=== PATIENT | male | born 1995 ===

== ENCOUNTER 2018-02-21 13:26 | Emergency (ER) | payer MEDICAID, OTHER ==
[2018-02-21 13:26] VITALS: BMI 17.7
[2018-02-21 13:43] VITALS: TEMP 97.6
[2018-02-21 14:37] VITALS: BP 104/58; PULSE 82; RESP 16
[2018-02-21 14:38] VITALS: O2SAT 99
--- NOTE | 2018-02-21 14:38 | C.PDOC ---
History Of Present Illness 22 year old male presents to ED complaining of left sided chest pain for the past 3 days. Patient reports pain is digitally reproducible with left arm movement. Denies fall, fever, chills, cough, shortness of breath, weakness, numbness. Time Seen by Provider: 02/21/18 14:15 Chief Complaint (Nursing): Chest Pain History Per: Patient History/Exam Limitations: no limitations Onset/Duration Of Symptoms: Days Current Symptoms Are (Timing): Still Present Past Medical History Reviewed: Historical Data, Nursing Documentation, Vital Signs Vital Signs: Last Vital Signs Temp 97.6 F 02/21/18 13:40 Pulse 66 02/21/18 13:40 Resp 18 02/21/18 13:40 BP 118/74 02/21/18 13:40 Pulse Ox 99 02/21/18 13:40 - Medical History PMH: Anxiety, Pneumothorax (at ) Surgical History: No Surg Hx - [facility] APPLICATION OF SPLINT (10/20/14) Family History: States: No Known Family Hx - Social History Hx Tobacco Use: No Hx Alcohol Use: No (marijuana) Hx Substance Use: No - Immunization History Hx Tetanus Toxoid Vaccination: No Hx Influenza Vaccination: No Hx Pneumococcal Vaccination: No Review Of Systems Except As Marked, All Systems Reviewed And Found Negative. Constitutional: Negative for: Fever, Chills Cardiovascular: Positive for: Chest Pain (Left sided.) Respiratory: Negative for: Cough, Shortness of Breath Gastrointestinal: Negative for: Nausea, Vomiting Neurological: Positive for: Other ((-) fall). Negative for: Weakness, Numbness Physical Exam - Physical Exam Appears: Non-toxic, No Acute Distress Skin: Warm, Dry, No Rash, Other (No mass, no hematoma.) Head: Atraumatic, Normacephalic Eye(s): bilateral: PERRL, EOMI Oral Mucosa: Moist Neck: Supple Chest: Symmetrical, No Deformity, Tenderness (Left lateral pectoralis area.) Cardiovascular: Rhythm Regular, No Murmur Respiratory: Normal Breath Sounds, No Rales, No Rhonchi, No Wheezing Gastrointestinal/Abdominal: Soft, No Tenderness Neurological/Psych: Oriented x3 ED Course And Treatment ECG: Interpreted By Me ECG Rhythm: Sinus Rhythm ECG Interpretation: Normal Rate From EC O2 Sat by Pulse Oximetry: 99 (RA) Pulse Ox Interpretation: Normal Reevaluation Time: 14:35 Medical Decision Making Medical Decision Making: positionally and digitally reproducible anterior chest wall discomfort, no ca rdiac s/s normal ekg Plan: * EKG * Ibuprofen Disposition Doctor Will See Patient In The: Office Counseled Patient/Family Regarding: Studies Performed, Diagnosis - Disposition Referrals: [facility] [Outside] [facility] [Outside] [facility] [Outside] [facility] [Outside] Disposition: HOME/ ROUTINE Disposition Time: 14:38 Condition: GOOD Additional Instructions: continue ice packs 1/2 hour per hour, nothing hot. motrin/advil 400-600 mg every 6 hours as needed no heavy lifting for 1 week follow-up in the outpatient Clinic as needed. Instructions: Costochondritis Forms: [facility] (Vincentian) - Clinical Impression Clinical Impression: Chest wall discomfort - Scribe Statement The provider has reviewed the documentation as recorded by the Katibinderjit Bostoned Provider Attestation: All medical record entries made by the Katibinderjit were at my direction and personally dictated by me. I have reviewed the chart and agree that the record accurately reflects my personal performance of the history, physical exam, medical decision making, and the department course for this patient. I have also personally directed, reviewed, and agree with the discharge instructions and disposition.
--- NOTE | 2018-02-24 19:30 | CARD ---
APPROVED REPORT Date of service: 02/21/2018 EKG Measurement Heart [id number] CT 128P14 [id number] <Conclusion> Normal sinus rhythm Early repolarization Normal ECG
== END 2018-02-21 15:06 | disposition home or self-care (01) ==
LOC: C.ER 13:26
DX: R07.89 Other chest pain (principal)

== ENCOUNTER 2018-08-16 15:45 | Observation (INO) | payer MEDICAID, OTHER ==
[2018-08-16 16:42] LABS: BASO # 0.1 K/uL (0.0-0.2); BASO % 1.3 % (0.0-2.0); EOS # 0.1 K/uL (0.0-0.7); EOS % 1.5 % (0.0-4.0); HEMOGLOBIN 15.7 g/dL (12.0-18.0); LYMPH # 1.2 K/uL (1.0-4.3); LYMPH % 28.1 % (20.0-40.0); MEAN CELL VOLUME 90.2 fL (80.0-94.0); MEAN CORPUSCULAR HEMOGLOBIN 31.3 pg (27.0-31.0); MEAN CORPUSCULAR HGB CONC 34.7 g/dL (33.0-37.0); MEAN PLATELET VOLUME 7.8 fL (7.2-11.7); MONO # 0.4 K/uL (0.0-0.8); MONO % 8.3 % (0.0-10.0); NEUT # 2.6 K/uL (1.8-7.0); NEUT % 60.8 % (50.0-75.0); RBC 5.02 Mil/uL (4.40-5.90); RED CELL DISTRIBUTION WIDTH 12.4 % (11.5-14.5); WHITE BLOOD COUNT 4.3 K/uL (4.8-10.8)
[2018-08-16 16:50] LABS: INR 1.1; PROTHROMBIN TIME 11.5 SECONDS (9.7-12.2)
[2018-08-16 16:53] LABS: ALB/GLOB RATIO 1.9 (1.0-2.1); ALBUMIN 4.7 g/dL (3.5-5.0); ALT/SGPT 13 U/L (21-72); AST/SGOT 33 U/L (17-59); BLOOD UREA NITROGEN 15 mg/dL (9-20); CALCIUM 10.1 mg/dl (8.6-10.4); GFR NON-AFRICAN AMERICAN > 60
--- NOTE | 2018-08-16 17:16 | RAD ---
Date of service: 08/16/2018 HISTORY: pleuritic chest pain COMPARISON: No prior. TECHNIQUE: Chest PA and lateral views FINDINGS: LUNGS: Increased lung Lolis vascular markings bilaterally. No focal consolidation. PLEURA: No significant pleural effusion identified. No pneumothorax apparent. CARDIOVASCULAR: No aortic atherosclerotic calcification present. Normal cardiac size. No pulmonary vascular congestion. OSSEOUS STRUCTURES: No significant abnormalities. VISUALIZED UPPER ABDOMEN: Normal. OTHER FINDINGS: None. IMPRESSION: Increased bronchovascular markings bilaterally may be seen with reactive airway disease and/or acute viral syndrome.
[2018-08-16 17:23] LABS: CK-MB 0.55 ng/mL (0.0-3.38)
[2018-08-16] MEDS ORDERED: Aspirin 325 mg EC Tablets PO STA (17:39)
[2018-08-16 18:12] LABS: BARBITURATES, UR NEGATIVE (NEGATIVE); BENZODIAZEPINES, UR NEGATIVE (NEGATIVE); OPIATES, UR NEGATIVE (NEGATIVE); PHENCYCLIDINE, UR NEGATIVE (NEGATIVE)
--- NOTE | 2018-08-16 18:58 | C.PDOC ---
History Of Present Illness 23 year old male presents to the ED complaining of pleuritic chest pain for 3 days. Reports it feels like his rib cage hurts. States he noticed blood streaks in his nose when he was showering this morning. Denies any SOB, nausea, vom iting, abdominal pain, dizziness, lightheadedness, fever, chills, cough or any other associated symptoms. Time Seen by Provider: 08/16/18 15:55 Chief Complaint (Nursing): Cough, Cold, Congestion History Per: Patient History/Exam Limitations: no limitations Onset/Duration Of Symptoms: Days (3) Current Symptoms Are (Timing): Still Present Past Medical History Reviewed: Historical Data, Nursing Documentation, Vital Signs Vital Signs: Last Vital Signs Temp 97.5 F L 08/16/18 15:48 Pulse 70 08/16/18 15:48 Resp 20 08/16/18 15:48 BP 117/79 08/16/18 15:48 Pulse Ox 100 08/16/18 15:48 - Medical History PMH: Anxiety Surgical History: No Surg Hx Family History: States: No Known Family Hx - Social History Hx Alcohol Use: Yes Hx Substance Use: No - Immunization History Hx Tetanus Toxoid Vaccination: No Hx Influenza Vaccination: No Hx Pneumococcal Vaccination: No Review Of Systems Except As Marked, All Systems Reviewed And Found Negative. Constitutional: Negative for: Fever, Chills ENT: Positive for: Other (blood streaks in nose ) Cardiovascular: Positive for: Chest Pain. Negative for: Light Headedness Respiratory: Negative for: Cough, Shortness of Breath Gastrointestinal: Negative for: Nausea, Vomiting, Abdominal Pain Neurological: Negative for: Dizziness Physical Exam - Physical Exam Appears: Non-toxic, No Acute Distress Skin: Warm, Dry, No Rash Head: Normacephalic Eye(s): bilateral: Normal Inspection Nose: Normal, No Epistaxis, No Other (signs of infection ) Oral Mucosa: Moist Tongue: Normal Appearing Lips: Normal Appearing Teeth: Normal Dentition Gingiva: Normal Appearing Throat: Normal, No Erythema, No Exudate Neck: Supple Chest: Symmetrical Cardiovascular: Rhythm Regular Respiratory: Normal Breath Sounds, No Rales, No Rhonchi, No Wheezing Extremity: Bilateral: Atraumatic, Normal Color And Temperature, Normal ROM Neurological/Psych: Oriented x3, Normal Speech Gait: Steady ED Course And Treatment - Laboratory Results Result Diagrams: 08/16/18 16:38 08/16/18 16:38 Lab Results: PT 11.5 SECONDS (9.7-12.2) 08/16/18 16:38 INR 1.1 08/16/18 16:38 APTT 33 SECONDS (21-34) 08/16/18 16:38 D-Dimer, Quantitative 206 ng/mlDDU (0-243) 08/16/18 16:38 Troponin I < 0.0120 ng/mL (0.00-0.120) 08/16/18 16:38 Total Bilirubin 0.8 mg/dL (0.2-1.3) 08/16/18 16:38 AST 33 U/L (17-59) 08/16/18 16:38 ALT 13 U/L (21-72) L 08/16/18 16:38 Alkaline Phosphatase 87 U/L (38-126) 08/16/18 16:38 Total Protein 7.3 g/dL (6.3-8.3) 08/16/18 16:38 Albumin 4.7 g/dL (3.5-5.0) 08/16/18 16:38 Globulin 2.5 gm/dL (2.2-3.9) 08/16/18 16:38 Albumin/Globulin Ratio 1.9 (1.0-2.1) 08/16/18 16:38 ECG: Interpreted By Me, Viewed By Me ECG Rhythm: Sinus Rhythm Interpretation Of ECG: Diffused ST elevations consistent with acute pericarditis. Rate From EC O2 Sat by Pulse Oximetry: 100 (RA) Pulse Ox Interpretation: Normal Progress Note: CXR ordered. No acute disease. Patient treated with Aspirin. Patient seen by attending Dr. Aldridge. Case was d/w Mail Deliverer who recommended observe patient in tele, ESR, Cardiac ECHO in the morning. Disposition - Disposition Disposition: HOSPITALIZED Disposition Time: 19:07 Condition: FAIR Forms: [facility] (Belarusian) - Clinical Impression Clinical Impression: Pericarditis - PA / SOFTWARE LICENSING ANALYST / Resident Statement MD/DO has reviewed & agrees with the documentation as recorded. - Scribe Statement The provider has reviewed the documentation as recorded by the Scribe Inga Matos All medical record entries made by the Scribe were at my direction and personally dictated by me. I have reviewed the chart and agree that the record accurately reflects my personal performance of the history, physical exam, medical decision making, and the department course for this patient. I have also personally directed, reviewed, and agree with the discharge instructions and disposition. Decision To Admit - Pt Status Changed To: Hospital Disposition Of: Observation - . Bed Request Type: Telemetry Admitting Physician: aZc Galindo Patient Diagnosis: Pericarditis
--- NOTE | 2018-08-16 20:30 | CP.PCM.HP ---
<Lawanda Porter - Last Filed: 08/17/18 00:11> History of Present Illness - History of Present Illness History of Present Illness: cc: "worsening rib pain" Mr. Leach is a 23 year old male with a PMH of anxiety presents to the ED with 3 days of pain in his ribs R>L during coughing and laughing. At worst, the pain is a 7/10 on his lateral rib cage, radiating slightly to the back, no quite re aching the flank. There is no soreness on his anterior side. It extends from below his armpit to the top of his hips, worsened with palpation, coughing, laughing, or holding his breath. The pain is not there in the morning when he first wakes. He additionally complains of nose bleeds for the last two days that first started in the shower. He's had two episodes today that took increasingly longer to stop. The latest took about 20 minutes before it stopped fully. Denies trauma, chest pain, shortness of breath, positional changes, ROM difficulties, bruising, nausea, vomiting, diarrhea. PMH: anxiety, congenital collapsed lung Med: denies All: NKDA PSxHx: denies FamHx: father - tuberculosis (treated), mother - leukemia, paternal uncle - prostate CA SocHx: smokes socially bumming cigarettes off friends at parties for the last year since quitting smoking marijuana after a "bad trip". Smoked marijuana for 3 years weekly, quitting in 2017. Binge drinks 10-15 (mix of shots and beer) 2x/month. Lives with family and is a freshman in college. Present on Admission - Present on Admission Any Indicators Present on Admission: No Review of Systems - Constitutional Constitutional: Increased Appetite, Weight Loss. absent: Anorexia, Chills, Fever, Headache - EENT Eyes: absent: Blind Spots, Blurred Vision, Change in Vision, Diplopia Ears: absent: Decreased Hearing, Tinnitus Nose/Mouth/Throat: Epistaxis. absent: Nasal Congestion, Nasal Discharge, Post Nasal Drip, Dysphagia, Odynophagia - Cardiovascular Cardiovascular: absent: Chest Pain, Diaphoresis, Dyspnea, Edema, Leg Edema, Palpitations, Rapid Heart Rate - Respiratory Respiratory: Pain with Coughing. absent: Cough, Dyspnea, Hemoptysis - Gastrointestinal Gastrointestinal: absent: Belching, Constipation, Diarrhea, Dysphagia, Excessive Flatus, Nausea, Odynophagia, Vomiting - Genitourinary Genitourinary: absent: Difficulty Urinating, Dysuria, Hematuria - Musculoskeletal Musculoskeletal: absent: Arthralgias, Back Pain, Limited Range of Motion, Numbness, Tingling - Integumentary Integumentary: absent: Acne, Bleeding Lesions, Rash, Sores, Wounds - Neurological Neurological: absent: Numbness, Headaches, Syncope, Tingling - Psychiatric Psychiatric: Anxiety - Hematologic/Lymphatic Hematologic: absent: Easy Bleeding, Easy Bruising Past Patient History - Past Social History Smoking Status: Current Some Days Smoker Alcohol: Social Drugs: Denies, Cannabis Home Situation {Lives}: With Family - PSYCHIATRIC Hx Anxiety: Yes Hx Substance Use: No - SURGICAL HISTORY Hx Surgeries: No Meds Allergies/Adverse Reactions: Allergies Allergy/AdvReac Type Severity Reaction Status Date / Time No Known Allergies Allergy Unverified 08/16/18 15:50 Physical Exam - Constitutional Appears: Well, Non-toxic, No Acute Distress - Head Exam Head Exam: ATRAUMATIC, NORMOCEPHALIC - Eye Exam Eye Exam: EOMI, Normal appearance, PERRL Pupil Exam: NORMAL ACCOMODATION - ENT Exam ENT Exam: Mucous Membranes Moist Additional comments: nose ring L - Neck Exam Neck exam: Positive for: Normal Inspection. Negative for: Lymphadenopathy, Tenderness, Thyromegaly - Respiratory Exam Respiratory Exam: Chest Wall Tenderness, Clear to Auscultation Bilateral, NORMAL BREATHING PATTERN. absent: Decreased Breath Sounds, Rales, Rhonchi, Wheezes Additional comments: splinting on deep inspiration - Cardiovascular Exam Cardiovascular Exam: REGULAR RHYTHM, +S1, +S2. absent: Gallop, Rubs, Systolic Murmur - GI/Abdominal Exam GI & Abdominal Exam: Normal Bowel Sounds, Soft. absent: Tenderness - Extremities Exam Extremities exam: Positive for: normal capillary refill, normal inspection, pedal pulses present - Back Exam Back exam: absent: CVA tenderness (L), CVA tenderness (R), muscle spasm, paraspinal tenderness - Neurological Exam Neurological exam: Alert, CN II-XII Intact, Normal Gait, Oriented x3, Reflexes Normal Additional comments: full ROM of lats, muscle strength intact for UE - Psychiatric Exam Psychiatric exam: Anxious, Normal Affect - Skin Skin Exam: Dry, Normal Color, Warm Additional comments: no discoloration slight TTP of lateral R ribs 3-10 Results - Vital Signs Recent Vital Signs: Last Vital Signs Temp 98.1 F 08/16/18 20:04 Pulse 77 08/16/18 20:04 Resp 18 08/16/18 20:04 BP 122/68 08/16/18 20:04 Pulse Ox 98 08/16/18 20:04 - Labs Result Diagrams: 08/16/18 16:38 08/16/18 16:38 Labs: Laboratory Results - last 24 hr 08/16/18 08/16/18 08/16/18 16:38 16:38 16:38 WBC 4.3 L RBC 5.02 Hgb 15.7 Hct 45.2 MCV 90.2 MCH 31.3 H MCHC 34.7 RDW 12.4 Plt Count 236 MPV 7.8 Neut % (Auto) 60.8 Lymph % (Auto) 28.1 Wetzel % (Auto) 8.3 Eos % (Auto) 1.5 Baso % (Auto) 1.3 Neut # (Auto) 2.6 Lymph # (Auto) 1.2 Wetzel # (Auto) 0.4 Eos # (Auto) 0.1 Baso # (Auto) 0.1 PT 11.5 INR 1.1 APTT 33 D-Dimer, Quantitative 206 Sodium 140 Potassium 4.0 Chloride 103 Carbon Dioxide 30 Anion Gap 11 BUN 15 Creatinine 1.1 Est GFR ( Amer) > 60 Est GFR (Non-Af Amer) > 60 Random Glucose 61 L Calcium 10.1 Total Bilirubin 0.8 AST 33 ALT 13 L Alkaline Phosphatase 87 Total Creatine Kinase CK-MB (Mass) Troponin I Total Protein 7.3 Albumin 4.7 Globulin 2.5 Albumin/Globulin Ratio 1.9 Urine Opiates Screen Urine Methadone Screen Ur Barbiturates Screen Ur Phencyclidine Scrn Ur Amphetamines Screen U Benzodiazepines Scrn U Oth Cocaine Metabols U Cannabinoids Screen 08/16/18 08/16/18 16:38 17:50 WBC RBC Hgb Hct MCV MCH MCHC RDW Plt Count MPV Neut % (Auto) Lymph % (Auto) Wetzel % (Auto) Eos % (Auto) Baso % (Auto) Neut # (Auto) Lymph # (Auto) Wetzel # (Auto) Eos # (Auto) Baso # (Auto) PT INR APTT D-Dimer, Quantitative Sodium Potassium Chloride Carbon Dioxide Anion Gap BUN Creatinine Est GFR ( Amer) Est GFR (Non-Af Amer) Random Glucose Calcium Total Bilirubin AST ALT Alkaline Phosphatase Total Creatine Kinase 212 H CK-MB (Mass) 0.55 Troponin I < 0.0120 Total Protein Albumin Globulin Albumin/Globulin Ratio Urine Opiates Screen Negative Urine Methadone Screen Negative Ur Barbiturates Screen Negative Ur Phencyclidine Scrn Negative Ur Amphetamines Screen Negative U Benzodiazepines Scrn Negative U Oth Cocaine Metabols Negative U Cannabinoids Screen Negative - EKG Data EKG Interpreted by: ER Physician EKG shows normal: ST-T waves Rate: Normal Assessment & Plan - Assessment and Plan (Free Text) Assessment: 23yo M PMH anxiety admitted for pericarditis. Plan: Pleuritic Chest Pain Pericarditis, consider Myocarditis CXR (08/16): reactive airway disease vs acute viral syndrome EKG showed diffusely elevated ST segments indicative of pericarditis d-dimer negative UDS negative - f/u ECHO - f/u HIV - f/u ERIN x1, initial ROMIs negative - f/u ESR, CRP negative - ASA 325mg po daily - Cardio consulted: Dr. Wharton - help appreciated - monitor on TELE PPx - DVT: score 0, no AC indicated - GI: not indicated - Diet: HHD 2g Na Dispo: Patient has not followed up with anyone for his anxiety since being diagnosed. His last anxiety attack was 2 months ago and occur about twice a year. Due to increase in stress from this hospitalization, it is encouraged that he seek therapy upon discharge. d/w Dr. Josie Porter PGY-1 - Date & Time Date: 08/16/18 Time: 20:15 <Zac Galindo - Last Filed: 08/17/18 07:04> Results - Vital Signs Recent Vital Signs: Last Vital Signs Temp 98.0 F 08/17/18 02:00 Pulse 70 08/17/18 04:00 Resp 20 08/17/18 02:00 BP 104/55 L 08/17/18 02:00 Pulse Ox 98 08/17/18 02:00 - Labs Result Diagrams: 08/16/18 16:38 08/16/18 16:38 Labs: Laboratory Results - last 24 hr 08/16/18 08/16/18 08/16/18 16:38 16:38 16:38 WBC 4.3 L RBC 5.02 Hgb 15.7 Hct 45.2 MCV 90.2 MCH 31.3 H MCHC 34.7 RDW 12.4 Plt Count 236 MPV 7.8 Neut % (Auto) 60.8 Lymph % (Auto) 28.1 Wetzel % (Auto) 8.3 Eos % (Auto) 1.5 Baso % (Auto) 1.3 Neut # (Auto) 2.6 Lymph # (Auto) 1.2 Wetzel # (Auto) 0.4 Eos # (Auto) 0.1 Baso # (Auto) 0.1 ESR PT 11.5 INR 1.1 APTT 33 D-Dimer, Quantitative 206 Sodium 140 Potassium 4.0 Chloride 103 Carbon Dioxide 30 Anion Gap 11 BUN 15 Creatinine 1.1 Est GFR ( Amer) > 60 Est GFR (Non-Af Amer) > 60 Random Glucose 61 L Calcium 10.1 Total Bilirubin 0.8 AST 33 ALT 13 L Alkaline Phosphatase 87 Total Creatine Kinase CK-MB (Mass) Troponin I C-Reactive Protein Total Protein 7.3 Albumin 4.7 Globulin 2.5 Albumin/Globulin Ratio 1.9 Urine Opiates Screen Urine Methadone Screen Ur Barbiturates Screen Ur Phencyclidine Scrn Ur Amphetamines Screen U Benzodiazepines Scrn U Oth Cocaine Metabols U Cannabinoids Screen 08/16/18 08/16/18 08/16/18 16:38 16:38 17:50 WBC RBC Hgb Hct MCV MCH MCHC RDW Plt Count MPV Neut % (Auto) Lymph % (Auto) Wetzel % (Auto) Eos % (Auto) Baso % (Auto) Neut # (Auto) Lymph # (Auto) Wetzel # (Auto) Eos # (Auto) Baso # (Auto) ESR PT INR APTT D-Dimer, Quantitative Sodium Potassium Chloride Carbon Dioxide Anion Gap BUN Creatinine Est GFR ( Amer) Est GFR (Non-Af Amer) Random Glucose Calcium Total Bilirubin AST ALT Alkaline Phosphatase Total Creatine Kinase 212 H CK-MB (Mass) 0.55 Troponin I < 0.0120 C-Reactive Protein < 5.00 Total Protein Albumin Globulin Albumin/Globulin Ratio Urine Opiates Screen Negative Urine Methadone Screen Negative Ur Barbiturates Screen Negative Ur Phencyclidine Scrn Negative Ur Amphetamines Screen Negative U Benzodiazepines Scrn Negative U Oth Cocaine Metabols Negative U Cannabinoids Screen Negative 08/16/18 08/16/18 19:01 22:28 WBC RBC Hgb Hct MCV MCH MCHC RDW Plt Count MPV Neut % (Auto) Lymph % (Auto) Wetzel % (Auto) Eos % (Auto) Baso % (Auto) Neut # (Auto) Lymph # (Auto) Wetzel # (Auto) Eos # (Auto) Baso # (Auto) ESR 1 PT INR APTT D-Dimer, Quantitative Sodium Potassium Chloride Carbon Dioxide Anion Gap BUN Creatinine Est GFR ( Amer) Est GFR (Non-Af Amer) Random Glucose Calcium Total Bilirubin AST ALT Alkaline Phosphatase Total Creatine Kinase 170 CK-MB (Mass) 0.36 Troponin I < 0.0120 C-Reactive Protein Total Protein Albumin Globulin Albumin/Globulin Ratio Urine Opiates Screen Urine Methadone Screen Ur Barbiturates Screen Ur Phencyclidine Scrn Ur Amphetamines Screen U Benzodiazepines Scrn U Oth Cocaine Metabols U Cannabinoids Screen Assessment & Plan - Date & Time Date: 08/17/18 (I have seen and examined the patient. I agree with the findings and plan of care as documented by Dr. Porter. Patient with chest pain. Diffuse changes on EKG suspicious for pericarditis vs myocarditis. Aspirin. Statin. ROMIx3. Consult to Dr Wharton. Monitor for acute changes.) Time: 07:04 Attending/Attestation - Attestation I have personally seen and examined this patient.: Yes I have fully participated in the care of the patient.: Yes I have reviewed all pertinent clinical information: Yes
[2018-08-16 23:09] LABS: CK-MB 0.36 ng/mL (0.0-3.38)
[2018-08-17 08:09] LABS: BASO % 0.8 % (0.0-2.0); EOS # 0.2 K/uL (0.0-0.7); EOS % 3.4 % (0.0-4.0); HEMOGLOBIN 14.6 g/dL (12.0-18.0); LYMPH % 38.9 % (20.0-40.0); MEAN CELL VOLUME 91.1 fL (80.0-94.0); MEAN CORPUSCULAR HEMOGLOBIN 31.7 pg (27.0-31.0); MEAN CORPUSCULAR HGB CONC 34.7 g/dL (33.0-37.0); MEAN PLATELET VOLUME 8.5 fL (7.2-11.7); MONO # 0.4 K/uL (0.0-0.8); MONO % 7.5 % (0.0-10.0); NEUT # 2.5 K/uL (1.8-7.0); NEUT % 49.4 % (50.0-75.0); NRBC % 0.1 % (0.0-2.0); RBC 4.62 Mil/uL (4.40-5.90); RED CELL DISTRIBUTION WIDTH 12.1 % (11.5-14.5); WHITE BLOOD COUNT 5.1 K/uL (4.8-10.8)
[2018-08-17 08:33] LABS: ALB/GLOB RATIO 1.8 (1.0-2.1); ALBUMIN 4.1 g/dL (3.5-5.0); ALT/SGPT 14 U/L (21-72); AST/SGOT 29 U/L (17-59); BLOOD UREA NITROGEN 17 mg/dL (9-20); CALCIUM 9.5 mg/dl (8.6-10.4); GFR NON-AFRICAN AMERICAN > 60
[2018-08-17] MEDS: Aspirin 325 mg EC Tablets PO SCH (09:36)
[2018-08-17] MEDS ORDERED: Pneumococcal 23-Valent Vaccine IM ONE (14:00)
--- NOTE | 2018-08-17 14:17 | CARD ---
APPROVED REPORT Date of service: 08/17/2018 EXAM: Two-dimensional and M-mode echocardiogram with Doppler and color Doppler. Other Information Quality : GoodRhythm : INDICATION Pericarditis smoking, pleuritic CP 2D DIMENSIONS IVSd0.7 (0.7-1.1cm)LVDd4.3 (3.9-5.9cm) PWd0.6 (0.7-1.1cm)LA Fcpaxn12 (18-58mL) LVDs3.2 (2.5-4.0cm)FS (%) 25.4 % LVEF (%)55.0 (>50%)LVEF (Gamino's)65 % IVC0.00 cm M-Mode DIMENSIONS RVDd1.29 (2.1-3.2cm)Left Atrium (MM)2.55 (2.5-4.0cm) IVSd0.46 (0.7-1.1cm)Aortic Root2.74 (2.2-3.7cm) LVDd4.97 (4.0-5.6cm)Aortic Cusp Exc.1.99 (1.5-2.0cm) PWd0.54 (0.7-1.1cm)FS (%) 40 % LVDs2.98 (2.0-3.8cm)LVEF (%)70 (>50%) Mitral Valve MV E Iwxzqqis10.1cm/sMV A Oevntatj98.8cm/sE/A ratio1.6 TDI Lateral E' Peak V17.93cm/sMedial E' Peak V14.74cm/sE/Lateral E'4.4 E/Medial E'5.3 Tricuspid Valve TR Peak Olsuumsm536gd/sTR Peak Gr.39ihJtCWUD18tlPa <Conclusion> normal size la,lv & ra rv. normal lv wall thickness,systolic & diastolic function with lvef of 60-65%. normal aortic,mitral,tv & pv. mild mr,tr & pi with normal pulmonary systolic pressures of 25 mm of hg. no pericardial effusion. dilated ivc 2.4 cm with poor inspiratory collapse suggestive of high ra pressures. clinical correlation is adv.
--- NOTE | 2018-08-17 15:13 | CARD ---
APPROVED REPORT Date of service: 08/16/2018 EKG Measurement Heart [id number] FL 124P50 [id number] <Conclusion> Normal sinus rhythm ST elevation, consider early repolarization, pericarditis, or injury Nonspecific ST and T wave abnormality Abnormal ECG
--- NOTE | 2018-08-17 15:34 | CARD ---
APPROVED REPORT Date of service: 08/16/2018 EKG Measurement Heart [id number] CT 124P41 [id number] <Conclusion> Normal sinus rhythm Possible Acute pericarditis Abnormal ECG
--- NOTE | 2018-08-17 16:31 | CP.PCM.PN ---
<Levi Tillman - Last Filed: 08/17/18 16:23> Subjective - Date & Time of Evaluation Date of Evaluation: 08/17/18 Time of Evaluation: 16:23 - Subjective Subjective: HOSPITALIST SERVICE Pt s/e at bedside, reports substantial improvement of pleuritic discomfort. Pt is able to recline and inspire deep now with minor discomfort. Pt denies CP SOB FC NV Objective - Vital Signs/Intake and Output Vital Signs (last 24 hours): Temp Pulse Resp BP Pulse Ox 97.5 F L 58 L 20 106/66 98 08/17/18 07:10 08/17/18 07:10 08/17/18 07:10 08/17/18 07:10 08/17/18 07:10 Intake and Output: 08/17/18 08/17/18 06:59 18:59 Intake Total 200 Balance 200 - Medications Medications: Current Medications Aspirin (Ecotrin) 325 mg PO DAILY JEANNIE Last Admin: 08/17/18 09:36 Dose: 325 mg - Labs Labs: 08/17/18 07:53 08/17/18 07:53 PT 11.5 SECONDS (9.7-12.2) 08/16/18 16:38 INR 1.1 08/16/18 16:38 APTT 33 SECONDS (21-34) 08/16/18 16:38 - Additional Findings Additional findings: - Constitutional Appears: Well, Non-toxic, No Acute Distress - Head Exam Head Exam: ATRAUMATIC, NORMOCEPHALIC - Eye Exam Eye Exam: EOMI, Normal appearance, PERRL Pupil Exam: NORMAL ACCOMODATION - ENT Exam ENT Exam: Mucous Membranes Moist Additional comments: nose ring L - Neck Exam Neck exam: Positive for: Normal Inspection. Negative for: Lymphadenopathy, Tenderness, Thyromegaly - Respiratory Exam Respiratory Exam: Chest Wall Tenderness, Clear to Auscultation Bilateral, NORMAL BREATHING PATTERN. absent: Decreased Breath Sounds, Rales, Rhonchi, Wheezes Additional comments: splinting on deep inspiration - Cardiovascular Exam Cardiovascular Exam: REGULAR RHYTHM, +S1, +S2. absent: Gallop, Rubs, Systolic Murmur - GI/Abdominal Exam GI & Abdominal Exam: Normal Bowel Sounds, Soft. absent: Tenderness - Extremities Exam Extremities exam: Positive for: normal capillary refill, normal inspection, pedal pulses present - Back Exam Back exam: absent: CVA tenderness (L), CVA tenderness (R), muscle spasm, paraspinal tenderness - Neurological Exam Neurological exam: Alert, CN II-XII Intact, Normal Gait, Oriented x3, Reflexes Normal Additional comments: full ROM of lats, muscle strength intact for UE - Psychiatric Exam Psychiatric exam: Anxious, Normal Affect - Skin Skin Exam: Dry, Normal Color, Warm Additional comments: no discoloration slight TTP of lateral R ribs 3-10 Assessment and Plan - Assessment and Plan (Free Text) Assessment: 23yo M PMH anxiety admitted for pericarditis. Plan: Pleuritic Chest Pain Pericarditis, consider Myocarditis CXR (08/16): reactive airway disease vs acute viral syndrome EKG showed diffusely elevated ST segments indicative of pericarditis d-dimer negative UDS negative - ECHO: no pericardial effusion, dilated IVC 2.4cm - f/u HIV - neg ERIN x3 - 1 ESR, CRP negative - ASA 325mg po daily - Cardio consulted: Dr. Wharton - help appreciated - monitor on TELE PPx - DVT: score 0, no AC indicated - GI: not indicated - Diet: HHD 2g Na Dispo: Dr Wharton will see him tn or tmrw and give d/c recs, if he leaves AMA- give him Naproxen 500mg q12 for 3 days Rx and f/u with Dr Wharton. also recommending psycho therapy for anxiety CK PGY1 d/w Dr. Alberto <Jasson Alberto - Last Filed: 08/17/18 17:58> Objective - Vital Signs/Intake and Output Vital Signs (last 24 hours): Temp Pulse Resp BP Pulse Ox 97.5 F L 58 L 20 106/66 98 08/17/18 07:10 08/17/18 07:10 08/17/18 07:10 08/17/18 07:10 08/17/18 07:10 Intake and Output: 08/17/18 08/17/18 06:59 18:59 Intake Total 200 Balance 200 - Medications Medications: Current Medications Aspirin (Ecotrin) 325 mg PO DAILY JEANNIE Last Admin: 08/17/18 09:36 Dose: 325 mg - Labs Labs: 08/17/18 07:53 08/17/18 07:53 PT 11.5 SECONDS (9.7-12.2) 08/16/18 16:38 INR 1.1 08/16/18 16:38 APTT 33 SECONDS (21-34) 08/16/18 16:38 Attending/Attestation - Attestation I have personally seen and examined this patient.: Yes I have fully participated in the care of the patient.: Yes I have reviewed all pertinent clinical information, including history, physical exam and plan: Yes Notes (Text): 08/17/18 17:55 Medical attending: Patient was seen and examined by me. Agree with the above note by the resident The patient was not in any acute distress when I came and saw the patient. We had him stand and walk with us also. He did ok, he did not need assistance, he did not have chest pain, was not short of breath, and not having palpitations when we walked with him He denies any recent illness, denies drug use, the UDS was negative. He also denies any recent heavy lifting and denies recent falls He had an echo done earlier today Jasson Alberto
[2018-08-18 07:15] LABS: BASO % 0.7 % (0.0-2.0); EOS # 0.2 K/uL (0.0-0.7); EOS % 3.4 % (0.0-4.0); HEMOGLOBIN 15.1 g/dL (12.0-18.0); LYMPH % 33.5 % (20.0-40.0); MEAN CELL VOLUME 90.5 fL (80.0-94.0); MEAN CORPUSCULAR HEMOGLOBIN 31.7 pg (27.0-31.0); MEAN CORPUSCULAR HGB CONC 35.1 g/dL (33.0-37.0); MEAN PLATELET VOLUME 8.2 fL (7.2-11.7); MONO # 0.6 K/uL (0.0-0.8); MONO % 9.5 % (0.0-10.0); NEUT # 3.2 K/uL (1.8-7.0); NEUT % 52.9 % (50.0-75.0); NRBC % 0.1 % (0.0-2.0); RBC 4.77 Mil/uL (4.40-5.90); RED CELL DISTRIBUTION WIDTH 12.3 % (11.5-14.5)
[2018-08-18 08:00] VITALS: BP 114/74; PULSE 60; RESP 20; TEMP 97.4; O2SAT 98
[2018-08-18 08:06] LABS: ALB/GLOB RATIO 1.8 (1.0-2.1); ALBUMIN 4.3 g/dL (3.5-5.0); ALT/SGPT 20 U/L (21-72); AST/SGOT 27 U/L (17-59); BLOOD UREA NITROGEN 15 mg/dL (9-20); CALCIUM 9.8 mg/dl (8.6-10.4); GFR NON-AFRICAN AMERICAN > 60
[2018-08-18] MEDS: Aspirin 325 mg EC Tablets PO SCH (09:30)
--- NOTE | 2018-08-18 16:09 | CP.PCM.DIS ---
Provider - Provider Date of Admission: 08/16/18 19:03 Attending physician: Zac Galindo MD Consults: 08/16/18 19:25 Cardiology Consult Routine Comment: Consulting Provider: Roscoe Wharton Consulting Physician: Roscoe Wharton Reason for Consult: pleuritic CP Time Spent in preparation of Discharge (in minutes): 70 Diagnosis - Discharge Diagnosis (1) Pericarditis Status: Resolved Hospital Course - Lab Results Lab Results: Most Recent Lab Values WBC 6.0 K/uL (4.8-10.8) 08/18/18 07:11 RBC 4.77 Mil/uL (4.40-5.90) 08/18/18 07:11 Hgb 15.1 g/dL (12.0-18.0) 08/18/18 07:11 Hct 43.1 % (35.0-51.0) 08/18/18 07:11 MCV 90.5 fL (80.0-94.0) 08/18/18 07:11 MCH 31.7 pg (27.0-31.0) H 08/18/18 07:11 MCHC 35.1 g/dL (33.0-37.0) 08/18/18 07:11 RDW 12.3 % (11.5-14.5) 08/18/18 07:11 Plt Count 256 K/uL (130-400) 08/18/18 07:11 MPV 8.2 fL (7.2-11.7) 08/18/18 07:11 Neut % (Auto) 52.9 % (50.0-75.0) 08/18/18 07:11 Lymph % (Auto) 33.5 % (20.0-40.0) 08/18/18 07:11 Delta % (Auto) 9.5 % (0.0-10.0) 08/18/18 07:11 Eos % (Auto) 3.4 % (0.0-4.0) 08/18/18 07:11 Baso % (Auto) 0.7 % (0.0-2.0) 08/18/18 07:11 Neut # (Auto) 3.2 K/uL (1.8-7.0) 08/18/18 07:11 Lymph # (Auto) 2.0 K/uL (1.0-4.3) 08/18/18 07:11 [place] # (Auto) 0.6 K/uL (0.0-0.8) 08/18/18 07:11 Eos # (Auto) 0.2 K/uL (0.0-0.7) 08/18/18 07:11 Baso # (Auto) 0.0 K/uL (0.0-0.2) 08/18/18 07:11 ESR 1 mm/hr (0-15) 08/16/18 19:01 PT 11.5 SECONDS (9.7-12.2) 08/16/18 16:38 INR 1.1 08/16/18 16:38 APTT 33 SECONDS (21-34) 08/16/18 16:38 D-Dimer, Quantitative 206 ng/mlDDU (0-243) 08/16/18 16:38 Sodium 139 mmol/L (132-148) 08/18/18 07:11 Potassium 4.5 mmol/L (3.6-5.2) 08/18/18 07:11 Chloride 106 mmol/L (98-107) 08/18/18 07:11 Carbon Dioxide 22 mmol/L (22-30) 08/18/18 07:11 Anion Gap 15 (10-20) 08/18/18 07:11 BUN 15 mg/dL (9-20) 08/18/18 07:11 Creatinine 1.1 mg/dL (0.8-1.5) 08/18/18 07:11 Est GFR ( Amer) > 60 08/18/18 07:11 Est GFR (Non-Af Amer) > 60 08/18/18 07:11 Random Glucose 99 mg/dL (75-110) 08/18/18 07:11 Calcium 9.8 mg/dl (8.6-10.4) 08/18/18 07:11 Total Bilirubin 0.4 mg/dL (0.2-1.3) 08/18/18 07:11 AST 27 U/L (17-59) 08/18/18 07:11 ALT 20 U/L (21-72) L D 08/18/18 07:11 Alkaline Phosphatase 87 U/L (38-126) 08/18/18 07:11 Total Creatine Kinase 151 U/L (55-170) 08/17/18 07:53 CK-MB (Mass) 0.30 ng/mL (0.0-3.38) 08/17/18 07:53 Troponin I < 0.0120 ng/mL (0.00-0.120) 08/17/18 07:53 C-Reactive Protein < 5.00 mg/L (0.0-9.9) 08/16/18 16:38 Total Protein 6.6 g/dL (6.3-8.3) 08/18/18 07:11 Albumin 4.3 g/dL (3.5-5.0) 08/18/18 07:11 Globulin 2.3 gm/dL (2.2-3.9) 08/18/18 07:11 Albumin/Globulin Ratio 1.8 (1.0-2.1) 08/18/18 07:11 TSH 3rd Generation 4.78 mIU/L (0.46-4.68) H 08/18/18 07:11 Urine Opiates Screen Negative (NEGATIVE) 08/16/18 17:50 Urine Methadone Screen Negative (NEGATIVE) 08/16/18 17:50 Ur Barbiturates Screen Negative (NEGATIVE) 08/16/18 17:50 Ur Phencyclidine Scrn Negative (NEGATIVE) 08/16/18 17:50 Ur Amphetamines Screen Negative (NEGATIVE) 08/16/18 17:50 U Benzodiazepines Scrn Negative (NEGATIVE) 08/16/18 17:50 U Oth Cocaine Metabols Negative (NEGATIVE) 08/16/18 17:50 U Cannabinoids Screen Negative (NEGATIVE) 08/16/18 17:50 HIV 1&2 Antibody Nonreactive (Nonreactive) 08/17/18 07:53 - Hospital Course Hospital Course: Upon Admission: Mr. Leach is a 23 year old male with a PMH of anxiety presents to the ED with 3 days of pain in his ribs R>L during coughing and laughing. At worst, the pain is a 7/10 on his lateral rib cage, radiating slightly to the back, no quite reaching the flank. There is no soreness on his anterior side. It extends from below his armpit to the top of his hips, worsened with palpation, coughing, laughing, or holding his breath. The pain is not there in the morning when he first wakes. He additionally complains of nose bleeds for the last two days that first started in the shower. He's had two episodes today that took increasingly longer to stop. The latest took about 20 minutes before it stopped fully. Denies trauma, chest pain, shortness of breath, positional changes, ROM difficulties, bruising, nausea, vomiting, diarrhea. EKG showed diffuse ST elevations, consistent with pericarditis. Patient was admitted. Hospital Course: CXR reactive airway disease vs acute viral syndrome EKG showed diffusely elevated ST segments indicative of pericarditis Cardiology was consulted and recommended ECHO. d-dimer negative UDS negative ECHO: no pericardial effusion, dilated IVC 2.4cm neg ERIN x3 1 ESR, CRP negative Patient was given ASA 325mg po daily Patient reported improvement in symptoms and was able to walk without difficulty. Patient was deemed stable for discharge. Upon Discharge: Patient was deemed stable for discharge to home. He was instructed to follow up with primary care and to take aspirin 81mg daily for 10 days. He was instructed to take ibuprofen for pain as needed. He was advised to return to the ED if symptoms worsened. patient understood instructions and agreed. Discharge Exam - Head Exam Head Exam: ATRAUMATIC, NORMOCEPHALIC - Additional Findings Additional findings: - Constitutional Appears: Well, Non-toxic, No Acute Distress - Head Exam Head Exam: ATRAUMATIC, NORMOCEPHALIC - Eye Exam Eye Exam: EOMI, Normal appearance, PERRL Pupil Exam: NORMAL ACCOMODATION - ENT Exam ENT Exam: Mucous Membranes Moist Additional comments: nose ring L - Neck Exam Neck exam: Positive for: Normal Inspection. Negative for: Lymphadenopathy, Tenderness, Thyromegaly - Respiratory Exam Respiratory Exam: Clear to Auscultation Bilateral, NORMAL BREATHING PATTERN. absent: Decreased Breath Sounds, Rales, Rhonchi, Wheezes - Cardiovascular Exam Cardiovascular Exam: REGULAR RHYTHM, +S1, +S2. absent: Gallop, Rubs, Systolic Murmur - GI/Abdominal Exam GI & Abdominal Exam: Normal Bowel Sounds, Soft. absent: Tenderness - Extremities Exam Extremities exam: Positive for: normal capillary refill, normal inspection, pedal pulses present - Back Exam Back exam: absent: CVA tenderness (L), CVA tenderness (R), muscle spasm, paraspinal tenderness - Neurological Exam Neurological exam: Alert, CN II-XII Intact, Normal Gait, Oriented x3, Reflexes Normal Additional comments: full ROM of lats, muscle strength intact for UE - Psychiatric Exam Psychiatric exam: Normal Mood, Normal Affect Discharge Plan - Follow Up Plan Condition: FAIR Disposition: HOME/ ROUTINE Instructions: Pericarditis in Adults, Pericarditis, Adult (DC) Additional Instructions: Please follow up with your primary care physician within 1 week. If you do not have a primary care physician, please follow up at the [facility] at [facility]. Call [phone] to make an appointment or come in person Friday through Friday 8AM to 3PM. Take Aspirin 81mg over the counter daily for 10 days. Take ibuprofen as needed for pain. If symptoms worsen, return to the emergency department. Take care and be well.
--- NOTE | 2018-08-18 18:03 | CP.PCM.CON ---
History of Present Illness - History of Present Illness History of Present Illness: CC: cardiac velauation Mr. Leach is a 23 year old male with a PMH of anxiety presents to the with 3 days of pain in his ribs R>L during coughing and laughing. At worst, the pain is a 7/10 on his lateral rib cage, radiating slightly to the back, no quite reaching the flank. There is no soreness on his anterior side. It extends from below his armpit to the top of his hips, worsened with palpation, coughing, laughing, or holding his breath. The pain is not there in the morning when he first wakes. He additionally complains of nose bleeds for the last two days that first started in the shower. He's had two episodes today that took increasingly longer to stop. The latest took about 20 minutes before it stopped fully. Denies trauma, chest pain, shortness of breath, positional changes, ROM difficulties, bruising, nausea, vomiting, diarrhea. PMH: anxiety, congenital collapsed lung Med: denies All: NKDA PSxHx: denies FamHx: father - tuberculosis (treated), mother - leukemia, paternal uncle - prostate CA SocHx: smokes socially bumming cigarettes off friends at parties for the last year since quitting smoking marijuana after a "bad trip". Smoked marijuana for 3 years weekly, quitting in 2017. Binge drinks 10-15 (mix of shots and beer) 2x/month. Lives with family and is a freshman in college. Present on Admission - Present on Admission Any Indicators Present on Admission: No Review of Systems - Constitutional Constitutional: Increased Appetite, Weight Loss. absent: Anorexia, Chills, F ever, Headache - EENT Eyes: absent: Blind Spots, Blurred Vision, Change in Vision, Diplopia Ears: absent: Decreased Hearing, Tinnitus Nose/Mouth/Throat: Epistaxis. absent: Nasal Congestion, Nasal Discharge, Post Nasal Drip, Dysphagia, Odynophagia - Cardiovascular Cardiovascular: absent: Chest Pain, Diaphoresis, Dyspnea, Edema, Leg Edema, Palpitations, Rapid Heart Rate - Respiratory Respiratory: Pain with Coughing. absent: Cough, Dyspnea, Hemoptysis - Gastrointestinal Gastrointestinal: absent: Belching, Constipation, Diarrhea, Dysphagia, Excessive Flatus, Nausea, Odynophagia, Vomiting - Genitourinary Genitourinary: absent: Difficulty Urinating, Dysuria, Hematuria - Musculoskeletal Musculoskeletal: absent: Arthralgias, Back Pain, Limited Range of Motion, Numbness, Tingling - Integumentary Integumentary: absent: Acne, Bleeding Lesions, Rash, Sores, Wounds - Neurological Neurological: absent: Numbness, Headaches, Syncope, Tingling - Psychiatric Psychiatric: Anxiety - Hematologic/Lymphatic Hematologic: absent: Easy Bleeding, Easy Bruising Past Patient History - Past Social History Smoking Status: Current Some Days Smoker Alcohol: Social Drugs: Denies, Cannabis Home Situation {Lives}: With Family - PSYCHIATRIC Hx Anxiety: Yes Hx Substance Use: No - SURGICAL HISTORY Hx Surgeries: No Meds Allergies/Adverse Reactions: Allergies Allergy/AdvReac Type Severity Reaction Status Date / Time No Known Allergies Allergy Unverified 08/16/18 15:50 Physical Exam - Constitutional Appears: Well, Non-toxic, No Acute Distress - Head Exam Head Exam: ATRAUMATIC, NORMOCEPHALIC - Eye Exam Eye Exam: EOMI, Normal appearance, PERRL Pupil Exam: NORMAL ACCOMODATION - ENT Exam ENT Exam: Mucous Membranes Moist Additional comments: nose ring L - Neck Exam Neck exam: Positive for: Normal Inspection. Negative for: Lymphadenopathy, Tenderness, Thyromegaly - Respiratory Exam Respiratory Exam: Chest Wall Tenderness, Clear to Auscultation Bilateral, NORMAL BREATHING PATTERN. absent: Decreased Breath Sounds, Rales, Rhonchi, Wheezes Additional comments: splinting on deep inspiration - Cardiovascular Exam Cardiovascular Exam: REGULAR RHYTHM, +S1, +S2. absent: Gallop, Rubs, Systolic Murmur - GI/Abdominal Exam GI & Abdominal Exam: Normal Bowel Sounds, Soft. absent: Tenderness - Extremities Exam Extremities exam: Positive for: normal capillary refill, normal inspection, pedal pulses present - Back Exam Back exam: absent: CVA tenderness (L), CVA tenderness (R), muscle spasm, paraspinal tenderness - Neurological Exam Neurological exam: Alert, CN II-XII Intact, Normal Gait, Oriented x3, Reflexes Normal Additional comments: full ROM of lats, muscle strength intact for UE - Psychiatric Exam Psychiatric exam: Anxious, Normal Affect - Skin Skin Exam: Dry, Normal Color, Warm Additional comments: no discoloration slight TTP of lateral R ribs 3-10 Results - Vital Signs Recent Vital Signs: Last Vital Signs Temp 98.1 F 04/14/19 20:04 Pulse 77 08/16/18 20:04 Resp 18 08/16/18 20:04 BP 122/68 08/16/18 20:04 Pulse Ox 98 08/16/18 20:04 - Labs Result Diagrams: 08/16/18 16:38 08/16/18 16:38 Labs: Laboratory Results - last 24 hr 08/16/18 08/16/18 08/16/18 16:38 16:38 16:38 WBC 4.3 L RBC 5.02 Hgb 15.7 Hct 45.2 MCV 90.2 MCH 31.3 H MCHC 34.7 RDW 12.4 Plt Count 236 MPV 7.8 Neut % (Auto) 60.8 Lymph % (Auto) 28.1 [place] % (Auto) 8.3 Eos % (Auto) 1.5 Baso % (Auto) 1.3 Neut # (Auto) 2.6 Lymph # (Auto) 1.2 [place] # (Auto) 0.4 Eos # (Auto) 0.1 Baso # (Auto) 0.1 PT 11.5 INR 1.1 APTT 33 D-Dimer, Quantitative 206 Sodium 140 Potassium 4.0 Chloride 103 Carbon Dioxide 30 Anion Gap 11 BUN 15 Creatinine 1.1 Est GFR ( Amer) > 60 Est GFR (Non-Af Amer) > 60 Random Glucose 61 L Calcium 10.1 Total Bilirubin 0.8 AST 33 ALT 13 L Alkaline Phosphatase 87 Total Creatine Kinase CK-MB (Mass) Troponin I Total Protein 7.3 Albumin 4.7 Globulin 2.5 Albumin/Globulin Ratio 1.9 Urine Opiates Screen Urine Methadone Screen Ur Barbiturates Screen Ur Phencyclidine Scrn Ur Amphetamines Screen U Benzodiazepines Scrn U Oth Cocaine Metabols U Cannabinoids Screen 08/16/18 08/16/18 16:38 17:50 WBC RBC Hgb Hct MCV MCH MCHC RDW Plt Count MPV Neut % (Auto) Lymph % (Auto) [place] % (Auto) Eos % (Auto) Baso % (Auto) Neut # (Auto) Lymph # (Auto) [place] # (Auto) Eos # (Auto) Baso # (Auto) PT INR APTT D-Dimer, Quantitative Sodium Potassium Chloride Carbon Dioxide Anion Gap BUN Creatinine Est GFR ( Amer) Est GFR (Non-Af Amer) Random Glucose Calcium Total Bilirubin AST ALT Alkaline Phosphatase Total Creatine Kinase 212 H CK-MB (Mass) 0.55 Troponin I < 0.0120 Total Protein Albumin Globulin Albumin/Globulin Ratio Urine Opiates Screen Negative Urine Methadone Screen Negative Ur Barbiturates Screen Negative Ur Phencyclidine Scrn Negative Ur Amphetamines Screen Negative U Benzodiazepines Scrn Negative U Oth Cocaine Metabols Negative U Cannabinoids Screen Negative Assessment & Plan - Assessment and Plan (Free Text) Assessment: 23yo M PMH anxiety admitted for pericarditis. Plan: Pleuritic Chest Pain Pericarditis Vs. Repolarization abnormality ASA 325 daily for 3-4 weeks and f/u with medicine and Cardiology Thank you Past Patient History - Past Social History Smoking Status: Current Some Days Smoker Alcohol: Social Drugs: Denies, Cannabis Home Situation {Lives}: With Family - PSYCHIATRIC Hx Anxiety: Yes Hx Substance Use: No - SURGICAL HISTORY Hx Surgeries: No Meds Allergies/Adverse Reactions: Allergies Allergy/AdvReac Type Severity Reaction Status Date / Time No Known Allergies Allergy Unverified 08/16/18 15:50 Results - Vital Signs Recent Vital Signs: Last Vital Signs Temp 97.4 F L 08/18/18 07:25 Pulse 60 08/18/18 07:25 Resp 20 08/18/18 07:25 BP 114/74 08/18/18 07:25 Pulse Ox 98 08/18/18 07:25 - Labs Result Diagrams: 08/18/18 07:11 08/18/18 07:11 Labs: Laboratory Results - last 24 hr 08/17/18 08/18/18 08/18/18 07:53 07:11 07:11 WBC 6.0 RBC 4.77 Hgb 15.1 Hct 43.1 MCV 90.5 MCH 31.7 H MCHC 35.1 RDW 12.3 Plt Count 256 MPV 8.2 Neut % (Auto) 52.9 Lymph % (Auto) 33.5 [place] % (Auto) 9.5 Eos % (Auto) 3.4 Baso % (Auto) 0.7 Neut # (Auto) 3.2 Lymph # (Auto) 2.0 [place] # (Auto) 0.6 Eos # (Auto) 0.2 Baso # (Auto) 0.0 Sodium 139 Potassium 4.5 Chloride 106 Carbon Dioxide 22 Anion Gap 15 BUN 15 Creatinine 1.1 Est GFR ( Amer) > 60 Est GFR (Non-Af Amer) > 60 Random Glucose 99 Calcium 9.8 Total Bilirubin 0.4 AST 27 ALT 20 L D Alkaline Phosphatase 87 Total Protein 6.6 Albumin 4.3 Globulin 2.3 Albumin/Globulin Ratio 1.8 TSH 3rd Generation 4.78 H HIV 1&2 Antibody Nonreactive
--- NOTE | 2018-08-18 20:38 | CARD ---
APPROVED REPORT Date of service: 08/17/2018 EKG Measurement Heart [id number] <Conclusion> Sinus bradycardia Early repolarization Otherwise normal ECG
== END 2018-08-18 14:22 | disposition home or self-care (01) ==
LOC: C.ER 15:45 → INTOOBSV 19:03 → MERGE 19:03 → C.9E 19:03 → C.6T 19:49
PROVIDERS: ADMIT Family Medicine; ATTEND Family Medicine
DX: I31.9 Disease of pericardium, unspecified (principal); F17.210 Nicotine dependence, cigarettes, uncomplicated; F12.90 Cannabis use, unspecified, uncomplicated
CPT/HCPCS: 36415; 71046; 80053; 80324; 80345; 80346; 80349; 80353; 80358; 80361; 82550; 82553; 83992; 84443; 84484; 85025; 85378; 85610; 85651; 85730; 86140; 86703; 93005; 93306; 99285; G0378